=== PATIENT | male | born 1975 | race Two or more races ===

== ENCOUNTER 2023-05-21 01:08 | Emergency (ER) | payer MEDICAID, OTHER ==
[~2023-05-21] VITALS: Ht 182.9 cm; Wt 84.1 kg
[2023-05-21 01:19] VITALS: BP 142/86; PULSE 71; RESP 18; TEMP 98.7
[2023-05-21 05:20] VITALS: O2SAT 99
== END 2023-05-21 05:42 | disposition left against medical advice (07) ==
LOC: EDBD 01:08 → ER 01:08
DX: G89.29 Other chronic pain (principal); M25.571 Pain in right ankle and joints of right foot; R44.0 Auditory hallucinations